=== PATIENT | male | born 1955 | race Caucasian/White ===

== ENCOUNTER 2019-03-01 21:52 | Emergency (ER) | payer OTHER ==
[2019-03-01 22:05] VITALS: BMI 27.1
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
[2019-03-02] MEDS ORDERED: IBUPROFEN 600 MG TABLET (FP) PO ONE (00:16)
[2019-03-02 00:40] VITALS: BP 132/73; PULSE 73; TEMP 98.2
== END 2019-03-02 00:20 | disposition home or self-care (01) ==
LOC: JER 21:52
DX: S00.81XA Abrasion of other part of head, initial encounter (principal); V43.52XA Car driver injured in collision with other type car in traffic accident, initial encounter; Y92.412 Parkway as the place of occurrence of the external cause; Y93.89 Activity, other specified; Y99.8 Other external cause status
CPT/HCPCS: 70450-TC; 72125-TC; 99281-25